=== PATIENT | female | born 1955 | race Caucasian/White ===

== ENCOUNTER 2022-02-16 08:39 | Day surgery (SDC) | payer OTHER, SELFPAY ==
[2022-02-16 09:28] VITALS: BP 129/60; PULSE 79; RESP 16; TEMP 36.5; O2SAT 97
[2022-02-16] MEDS: Tropicam./Phenyleph. (1/2.5%) 5 ML BTL OS ×3 (09:34→09:46)
--- NOTE | 2022-02-16 09:36 | ANES.PREOP_ITS ---
General Info Date of Service Date Performed: 02/16/22 Height: 5 ft Weight: 44.5 kg Body Mass Index (BMI): 19.1 Surgical Procedure: Operation Date: 02/16/22 11:40 Proposed Procedure Side Surgeon p Cataract Extraction with IOL Implant Left Jarek Mon MD Meds Allergies and Home Medications Allergies Allergy/AdvReac Type Severity Reaction Status Date / Time amoxicillin [From Augmentin] Allergy Intermediate Hives Unverified 02/15/22 14:52 aspirin Allergy Intermediate Hives Unverified 02/15/22 14:53 clavulanic acid Allergy Intermediate Hives Unverified 02/15/22 14:52 [From Augmentin] oxycodone Allergy Intermediate Hives Unverified 02/15/22 14:52 Home Medication Medication Instructions Recorded aspirin 81 mg capsule,delayed 81 mg PO DAILY 02/15/22 release cyanocobalamin (vitamin B-12) 500 500 mcg PO DAILY 02/15/22 mcg tablet (Vitamin B-12) ferrous sulfate 325 mg (65 mg 325 mg PO DAILY 02/15/22 iron) tablet ibuprofen 200 mg tablet 200 mg PO DIRECTED 02/15/22 infliximab 100 mg intravenous 100 mg IV DIRECTED 02/15/22 solution (Remicade) lisinopril 2.5 mg tablet 2.5 mg PO DAILY 02/15/22 magnesium oxide 500 mg tablet 500 mg PO DAILY 02/15/22 potassium 75 mg tablet 75 mg PO DAILY 02/15/22 sulfasalazine 500 mg 1,000 mg PO TID 02/15/22 tablet,delayed release Current Visit Medications: Current Medications Generic Name Dose Route Start Last Admin Trade Name Freq PRN Reason Stop Dose Admin Acetaminophen 1,000 mg 02/16/22 06:00 Acetaminophen 500 Mg Tab PO Q4H PRN PRN Miscellaneous Medication 0 ml 02/16/22 06:00 Prednisolone 1%, Moxifloxacin 0.5%, Nepafenac 0.1% 5ml Btl OS DIRECTED [facility] Miscellaneous Medication 0 ml 02/16/22 06:00 02/16/22 09:34 Tropicam./Phenyleph. 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 stated it was not blocked it was kinked. History of tonsillectomy and adenoidectomy Hx of arthroscopy of shoulder Hx of breast biopsy Hx of esophagogastroduodenoscopy Tobacco Smoking/Tobacco Use Status: Current every day Tobacco Type: cigarettes Alcohol Alcohol Intake: never Substance Use Substance use: Never Substance use type: does not use Vital Signs and Lab Results Vital Signs Most Recent Vital Signs in EMR: Most Recent Vital Signs Temp Pulse Resp BP Pulse Ox 36.5 C 79 16 129/60 97 02/16/22 09:28 02/16/22 09:28 02/16/22 09:28 02/16/22 09:28 02/16/22 09:28 Lab Results Blood Type / Crossmatch: No Data to Display Complete Blood Count: No Data to Display Complete Metabolic Panel: No Data to Display Liver Function Panel: No Data to Display Coagulation Panel: No Data to Display Cardiac Panel: No Data to Display Arterial Blood Gas: No Data to Display Venous Blood Gas: No Data to Display Pancreas Panel: No Data to Display Thyroid Panel: No Data to Display Infectious Disease: No Data to Display Blood Cultures: No Data to Display Toxicology Panel: No Data to Display Anesthesia Assessment and Plan Anesthesia History Personal History: No History of Anesthesia Complications Family History: No Family History of Anesthesia Complications Exercise Tolerance Exercise Tolerance: Metabolic Equivalents>4 Pertinent Negatives Pertinent Negatives: No Symptoms of GERD Cardiac & Pulmonary Exam Cardiac Exam: Normal S1/S2 Heart Sounds Pulmonary Exam: Clear Bilateral Breath Sounds Implantable Cardiac Device Does patient have a Pacemaker or an ICD?: No Airway Exam Known Difficult Airway: No Mallampati Class: 3 Mouth Opening: Normal (> 3cm) Thyromental Distance: Less than 3 cm Neck Range of Motion: Full ROM Neck Circumference: Normal Teeth Condition: Removable Dentures/Plates Upper and Removable Dentures/Plates Lower ASA Classification ASA Score: ASA 2 Emergency Case?: No NPO Status NPO Status: NPO Clears >2 hours, Solids >8 hours Anesthesia Plan Resuscitation Status: Full Code Anesthesia Technique: MAC Anesthesia Airway Planned: Natural Airway Monitors Used: Standard Monitors
[2022-02-16 09:37] VITALS: BMI 19.1
[2022-02-16] MEDS: Balanced Salt Soln.-PLUS 500 ML BAG (11:25)
[2022-02-16] MEDS: Duovisc Viscoelastic System EACH 1 EACH (11:26)
[2022-02-16] MEDS: Lidocaine 2% Jelly 6 ML SYR (11:27)
[2022-02-16] MEDS: Povidone-Iodine Ophth 30 ML BTL (11:31)
[2022-02-16] MEDS: Tetracaine 0.5% 4 ML BTL OS (11:32)
--- NOTE | 2022-02-16 11:47 | PDOC.DSDIS_ITS ---
Date of service: 02/16/22 Time of Service: 11:48 Discharge Plan Disposition Patient Disposition: HOME Condition: Good Discharge Details Attending Provider: Jarek Mon Primary Care Provider: Rosamaria Guardado [place] Meds and New Rx's Prescriptions: No Action sulfasalazine 500 mg Tablet,Delayed Release (Dr/Ec) 1,000 mg PO TID aspirin 81 mg Capsule,Delayed Release(Dr/Ec) 81 mg PO DAILY cyanocobalamin (vitamin B-12) [Vitamin B-12] 500 mcg Tablet 500 mcg PO DAILY potassium 75 mg Tablet 75 mg PO DAILY ferrous sulfate 325 mg (65 mg iron) Tablet 325 mg PO DAILY infliximab [Remicade] 100 mg Recon Soln 100 mg IV DIRECTED ibuprofen 200 mg Tablet 200 mg PO DIRECTED magnesium oxide 500 mg Tablet 500 mg PO DAILY lisinopril 2.5 mg Tablet 2.5 mg PO DAILY Discharge Instructions Stand Alone Forms: Post-op Topical Cataract, Henrry Smith (DSU) Discharge Orders Discharge Orders: Discharge Order (Routine); Ordered 02/16/22 Ordered By: Jraek Mon DS: Diagnosis Discharge Diagnosis (1) Cortical cataract of left eye: Status: Resolved (2) Nuclear sclerotic cataract of left eye: Status: Resolved
[2022-02-16 11:48] VITALS: BP 126/72; PULSE 81; RESP 16; TEMP 36.2; O2SAT 96
--- NOTE | 2022-02-16 11:48 | ROE_ITS ---
Date of service: 02/16/22 Time of Service: 11:48 Operative Note Operative Note DATE OF PROCEDURE: 02/16/22 PRE-OP DIAGNOSIS: Nuclear/cortical cataract, left eye POST-OP DIAGNOSIS: same PROCEDURE: Cataract extraction using phacoemulsification with intraocular lens implant, left eye SURGEON: Jarek Mon ANESTHESIA TYPE: Local By Surgeon and MAC Refer to Anesthesia Record PATHOLOGY: none sent COMPLICATIONS: None Patient was transported to: same day Patient's condition: stable Implants: Tray and Tray / [employer] Tecnis [id number] Indications: Progressive decreased vision due to cataract, left eye Procedure Description: CATARACT SURGERY OPERATIVE REPORT PREOPERATIVE DIAGNOSIS: 1. Nuclear/cortical cataract, left eye POSTOPERATIVE DIAGNOSIS: Same OPERATION: 1. Cataract extraction using phacoemulsification with posterior chamber intraocular lens implant, left eye. IOL: IOL Rail [employer] Supervisor/Model: Tray & Tray / KALLIE Tecnis [id number] IOL Power: + 25.0 diopters IOL Serial Number: [id number] Optic Diameter: 6.0 mm Haptic/Overall Diameter: 13.0 mm PHACO INFO: Mikey[employer]emon Vision System with OZil and Active Fluidics Cumulative Dispersed Energy (CDE): 6.86 seconds SURGEON: Jarek Mon MD, NORA ANESTHESIA: Monitored A [facility] (MAC), with local sub-tenon's anesthetic infiltration COMPLICATIONS: None SPECIMENS: None INDICATIONS FOR PROCEDURE: The patient is a 66-year-old lady with history of diminished visual acuity in her left eye secondary to the development of nuclear/cortical cataract in the left eye. The option of cataract surgery was offered to the patient and she wished to proceed. PROCEDURE: The correct surgical eye was identified and marked as the left eye and the pupil was dilated in the preoperative area using mydriatics and cycloplegics. The dilated pupil size was 7.0 mm.. The patient elected to proceed without oral sedation. The patient was brought to the operating room where cardiopulmonary monitoring was instituted and surgical time-out was performed, confirming the correct operative eye and IOL power. Topical anesthesia was administered and ophthalmic povidone-iodine 5% was instilled into the conjunctival fornices. Lidocaine gel was applied to the cornea and the amy-ocular area was prepped with Betadine 10% solution and draped in the usual sterile fashion for intraocular surgery, including an aperture drape. A Tegaderm transparent film dressing was cut in half and used to cover the lashes and lid margins. Care was taken to sequester the lashes and lid margins under the Tegaderm dressing. A lid speculum was placed between the lids of the operative eye and the Mikey LuxOR Revalia operating microscope was maneuvered into position. Bella scissors were then used to make a conjunctival buttonhole approximately 6mm posterior to the limbus in the inferonasal quadrant. Blunt dissection was carried out to expose bare sclera, and a blunt-tipped sub-tenon?s anesthesia cannula was introduced and passed posteriorly along the globe where non- preserved plain lidocaine was injected into posterior sub-Tenon?s space. A sideport knife was used to make a paracentesis port superiorly/superiortemporally. Intraocular phenylephrine/lidocaine was injected int the anterior chamber.. The anterior chamber was filled with viscoelastic. A keratome knife was used to construct a 2-plane near-clear corneal tunnel extending 2.0mm into clear cornea temporally. A flap was raised on the anterior capsule and capsulorhexis forceps were used to complete a continuous curvilinear capsulorhexis of 5.0 mm. Balanced salt solution was then used to perform cortical cleaving hydrodissection and nuclear hydrodelineation until the lens could be freely rotated within the capsular bag. The lens nucleus was then disassembled and removed within the capsular bag and iris plane using phacoemulsification. Residual cortical material was removed using the 45-degree angled silicone I/A tip with 0.3mm port. The posterior capsule was carefully polished to remove as much residual lens epithelial cells as safely possible. The capsular bag was then inflated and the anterior chamber deepened with viscoelastic. The lens implant described above was inserted into the capsular bag using the KALLIE [place] Injector. A Kuglen hook was used to dial the IOL into position. Residual viscoelastic was then removed first from posterior to the IOL, then from the anterior chamber using the I/A handpiece. The lens implant was noted to center nicely within the capsular bag. The incisions were stromally hydrated, and the anterior chamber was reformed using BSS. Then 0.5cc of moxifloxacin 1.0mg/ml were injected into the capsular bag and anterior chamber. The incisions were checked with a Weck spear and found to be secure. Several drops of ophthalmic povidone-iodine 5% were then applied to the eye followed by two drops of Imprimis combination prednisolone/moxifloxacin/nepafenac solution. The drapes were removed and a clear plastic protective eye shield was placed over the eye. The patient was then returned to Same Day Surgery in stable condition.
--- NOTE | 2022-02-16 12:28 | W.ANESPOSTOP ---
Postoperative Evaluation Date, Time and Location Date Performed: 02/16/22 Time Performed: 11:55 Patient Location: Day Surgery Unit Vital Signs Most Recent Imported Vital Signs: Most Recent Vital Signs Temp Pulse Resp BP Pulse Ox 36.2 C L 81 16 126/72 96 02/16/22 11:48 02/16/22 11:48 02/16/22 11:48 02/16/22 11:48 02/16/22 11:48 Pain Score Most Recent Pain Score: Most Recent Pain Score Pain Level 0 02/16/22 11:48 Assessment Mental Status: Awake (Alert & Oriented to Patient Baseline) Airway and Respiratory Function: Patent airway with normal (patient baseline) respiratory exam Cardiovascular Function: Hemodynamically Stable Hydration Status: Adequately Hydrated Nausea & Vomiting: No Nausea or Vomiting Pain: Pt. Denies Any Pain Peripheral Nerve Block: Patient did not receive a nerve block
== END 2022-02-16 12:16 | disposition home or self-care (01) ==
LOC: SUR 08:41
PROVIDERS: PCP Family Medicine; Visit Provider Ophthalmology
PROC: (CPT 66984; principal; 2022-02-16 11:30)
DX: H25.12 Age-related nuclear cataract, left eye (principal); I10 Essential (primary) hypertension; E78.2 Mixed hyperlipidemia
CPT/HCPCS: 66984; V2632

== ENCOUNTER 2022-03-02 06:32 | Day surgery (SDC) | payer OTHER, SELFPAY ==
[2022-03-02 06:30] VITALS: BP 152/66; PULSE 84; RESP 18; TEMP 36.6; O2SAT 99
[2022-03-02] MEDS: Tropicam./Phenyleph. (1/2.5%) 5 ML BTL OD ×3 (06:45→06:52)
--- NOTE | 2022-03-02 07:16 | ANES.PREOP_ITS ---
General Info Date of Service Date Performed: 03/02/22 Height: 5 ft 1 in Weight: 46 kg Body Mass Index (BMI): 19.1 Surgical Procedure: Operation Date: 03/02/22 07:40 Proposed Procedure Side Surgeon p Cataract Extraction with IOL Implant Right Jarek Mon MD Actual Procedure Side Surgeon p Cataract Extraction with IOL Implant Right Jarek Mon MD Meds Allergies and Home Medications Allergies Allergy/AdvReac Type Severity Reaction Status Date / Time amoxicillin [From Augmentin] Allergy Intermediate Hives Unverified 03/02/22 06:40 aspirin Allergy Intermediate Hives Unverified 03/02/22 06:40 clavulanic acid Allergy Intermediate Hives Unverified 03/02/22 06:40 [From Augmentin] oxycodone Allergy Intermediate Hives Unverified 03/02/22 06:40 Home Medication Medication Instructions Recorded aspirin 81 mg capsule,delayed 81 mg PO DAILY 02/15/22 release cyanocobalamin (vitamin B-12) 500 500 mcg PO DAILY 02/15/22 mcg tablet (Vitamin B-12) ferrous sulfate 325 mg (65 mg 325 mg PO DAILY 02/15/22 iron) tablet ibuprofen 200 mg tablet 200 mg PO DIRECTED 02/15/22 infliximab 100 mg intravenous 100 mg IV DIRECTED 02/15/22 solution (Remicade) lisinopril 2.5 mg tablet 2.5 mg PO DAILY 02/15/22 magnesium oxide 500 mg tablet 500 mg PO DAILY 02/15/22 potassium 75 mg tablet 75 mg PO DAILY 02/15/22 sulfasalazine 500 mg 1,000 mg PO TID 02/15/22 tablet,delayed release Current Visit Medications: Current Medications Generic Name Dose Route Start Last Admin Trade Name Freq PRN Reason Stop Dose Admin Acetaminophen 1,000 mg 03/02/22 06:00 Acetaminophen 500 Mg Tab PO Q4H PRN PRN Miscellaneous Medication 0 ml 03/02/22 06:00 Prednisolone 1%, Moxifloxacin 0.5%, Nepafenac 0.1% 5ml Btl OD DIRECTED [facility] Miscellaneous Medication 0 ml 03/02/22 06:00 03/02/22 06:52 Tropicam./Phenyleph. 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 stated it was not blocked it was kinked. History of cataract surgery History of tonsillectomy and adenoidectomy Hx of arthroscopy of shoulder Hx of breast biopsy Hx of esophagogastroduodenoscopy Tobacco Smoking/Tobacco Use Status: Current every day Tobacco Type: cigarettes Alcohol Alcohol Intake: never Substance Use Substance use: Never Substance use type: does not use Vital Signs and Lab Results Vital Signs Most Recent Vital Signs in EMR: Most Recent Vital Signs Temp Pulse Resp BP Pulse Ox 36.6 C 84 18 152/66 H 99 03/02/22 06:30 03/02/22 06:30 03/02/22 06:30 03/02/22 06:30 03/02/22 06:30 Lab Results Blood Type / Crossmatch: No Data to Display Complete Blood Count: No Data to Display Complete Metabolic Panel: No Data to Display Liver Function Panel: No Data to Display Coagulation Panel: No Data to Display Cardiac Panel: No Data to Display Arterial Blood Gas: No Data to Display Venous Blood Gas: No Data to Display Pancreas Panel: No Data to Display Thyroid Panel: No Data to Display Infectious Disease: No Data to Display Blood Cultures: No Data to Display Toxicology Panel: No Data to Display Anesthesia Assessment and Plan Anesthesia History Personal History: No History of Anesthesia Complications Family History: No Family History of Anesthesia Complications Exercise Tolerance Exercise Tolerance: Metabolic Equivalents>4 Cardiac & Pulmonary Exam Cardiac Exam: Normal S1/S2 Heart Sounds Pulmonary Exam: Clear Bilateral Breath Sounds Implantable Cardiac Device Does patient have a Pacemaker or an ICD?: No Airway Exam Known Difficult Airway: No Mallampati Class: 3 Mouth Opening: Normal (> 3cm) Thyromental Distance: Less than 3 cm Neck Range of Motion: Full ROM Neck Circumference: Normal Teeth Condition: Removable Dentures/Plates Upper and Removable Dentures/Plates Lower ASA Classification ASA Score: ASA 2 Emergency Case?: No NPO Status NPO Status: NPO Clears >2 hours, Solids >8 hours Anesthesia Plan Resuscitation Status: Full Code Anesthesia Technique: MAC Anesthesia Airway Planned: Natural Airway Monitors Used: Standard Monitors
[2022-03-02 07:17] VITALS: BMI 19.1
[2022-03-02] MEDS: Povidone-Iodine Ophth 30 ML BTL (07:29)
[2022-03-02] MEDS: Lidocaine 2% Jelly 6 ML SYR (07:30)
[2022-03-02] MEDS: Tetracaine 0.5% 4 ML BTL OD (07:30)
[2022-03-02] MEDS: Balanced Salt Soln.-PLUS 500 ML BAG (07:40)
[2022-03-02] MEDS: Duovisc Viscoelastic System EACH 1 EACH (07:41)
[2022-03-02 07:54] VITALS: BP 102/85; PULSE 69; RESP 16; TEMP 36.3; O2SAT 97
--- NOTE | 2022-03-02 07:54 | PDOC.DSDIS_ITS ---
Date of service: 03/02/22 Time of Service: 07:54 Discharge Plan Disposition Patient Disposition: HOME Condition: Good Discharge Details Attending Provider: Jarek Mon Primary Care Provider: Rosamaria Guardado [place] Meds and New Rx's Prescriptions: No Action sulfasalazine 500 mg Tablet,Delayed Release (Dr/Ec) 1,000 mg PO TID aspirin 81 mg Capsule,Delayed Release(Dr/Ec) 81 mg PO DAILY cyanocobalamin (vitamin B-12) [Vitamin B-12] 500 mcg Tablet 500 mcg PO DAILY potassium 75 mg Tablet 75 mg PO DAILY ferrous sulfate 325 mg (65 mg iron) Tablet 325 mg PO DAILY infliximab [Remicade] 100 mg Recon Soln 100 mg IV DIRECTED ibuprofen 200 mg Tablet 200 mg PO DIRECTED magnesium oxide 500 mg Tablet 500 mg PO DAILY lisinopril 2.5 mg Tablet 2.5 mg PO DAILY Discharge Instructions Stand Alone Forms: Post-op Topical Cataract, Henrry Smith (DSU) Discharge Orders Discharge Orders: Discharge Order (Routine); Ordered 03/02/22 Ordered By: Jarek Mon DS: Diagnosis Discharge Diagnosis (1) Cortical cataract of right eye: Status: Resolved (2) Nuclear sclerotic cataract of right eye: Status: Resolved
--- NOTE | 2022-03-02 07:55 | W.PM.OP ---
Date of service: 03/02/22 Time of Service: 07:55 Operative Note Operative Note DATE OF PROCEDURE: 03/02/22 PRE-OP DIAGNOSIS: Nuclear/cortical cataract, right eye POST-OP DIAGNOSIS: same PROCEDURE: Cataract extraction using phacoemulsification with intraocular lens implant, right eye SURGEON: Jarek Mon ANESTHESIA TYPE: Local By Surgeon and MAC Refer to Anesthesia Record ESTIMATED BLOOD LOSS: 0 PATHOLOGY: none sent COMPLICATIONS: None Patient was transported to: same day Patient's condition: stable Implants: Tray & Tray/KALLIE Tecnis [id number] Indications: Progressive visual loss due to cataract, right eye Procedure Description: CATARACT SURGERY OPERATIVE REPORT PREOPERATIVE DIAGNOSIS: 1. Nuclear/cortical cataract, right eye POSTOPERATIVE DIAGNOSIS: Same OPERATION: 1. Cataract extraction using phacoemulsification with posterior chamber intraocular lens implant, right eye. IOL: IOL Paint Stockman/Model: Tray & Tray / KALLIE Tecnis [id number] IOL Power: + 24.0 diopters IOL Serial Number: [id number] Optic Diameter: 6.0mm Haptic/Overall Diameter: 13.0mm PHACO INFO: Mikey [employer] Vision System with OZil and Active Fluidics Cumulative Dispersed Energy (CDE): 10.60 seconds SURGEON: Jarek Mon MD, NORA ANESTHESIA: Monitored Anesthesia Care (MAC), with local sub-tenon's anesthetic infiltration COMPLICATIONS: None SPECIMENS: None INDICATIONS FOR PROCEDURE: The patient is a 66-year-old lady with history of diminished visual acuity in both eyes secondary to development of bilateral nuclear/cortical cataract. She has already undergone cataract surgery in the left eye and is doing well postoperatively. She now presents for cataract surgery in the right eye. PROCEDURE: The correct surgical eye was identified and marked as the right eye and the pupil was dilated in the preoperative area using mydriatics and cycloplegics. The dilated pupil size was 6.5 mm. Oral sedation was administered in the form of an Imprimis MKO Melt (midazolam 3mg/ketamine 25mg/ondansetron 2mg). The patient elected to proceed without oral sedation. The patient was brought to the operating room where cardiopulmonary monitoring was instituted and surgical time-out was performed, confirming the correct operative eye and IOL power. Topical anesthesia was administered and ophthalmic povidone-iodine 5% was instilled into the conjunctival fornices. Lidocaine gel was applied to the cornea and the amy-ocular area was prepped with Betadine 10% solution and draped in the usual sterile fashion for intraocular surgery, including an aperture drape. A Tegaderm transparent film dressing was cut in half and used to cover the lashes and lid margins. Care was taken to sequester the lashes and lid margins under the Tegaderm dressing. A lid speculum was placed between the lids of the operative eye and the Mikey LuxOR Revalia operating microscope was maneuvered into position. Bella scissors were then used to make a conjunctival buttonhole approximately 6mm posterior to the limbus in the inferonasal quadrant. Blunt dissection was carried out to expose bare sclera, and a blunt-tipped sub-tenon?s anesthesia cannula was introduced and passed posteriorly along the globe where non-preserved plain lidocaine was injected into posterior sub-Tenon?s space. A sideport knife was used to make a paracentesis port inferotemporally. Intraocular phenylephrine/lidocaine was injected into the anterior chamber. The anterior chamber was filled with viscoelastic. A keratome knife was used to construct a 2-plane near-clear corneal tunnel extending 2.0mm into clear cornea superiortemporally. A flap was raised on the anterior capsule and capsulorhexis forceps were used to complete a continuous curvilinear capsulorhexis of 5.5 mm. Balanced salt solution was then used to perform cortical cleaving hydrodissection and nuclear hydrodelineation until the lens could be freely rotated within the capsular bag. The lens nucleus was then disassembled and removed within the capsular bag and iris plane using phacoemulsification. Residual cortical material was removed using the I/A handpiece. The posterior capsule was carefully polished to remove as much residual lens epithelial cells as safely possible. The capsular bag was then inflated and the anterior chamber deepened with viscoelastic. The lens implant described above was inserted into the capsular bag using the KALLIE [place] Injector. A Kuglen hook was used to dial the IOL into position. Residual viscoelastic was then removed first from posterior to the IOL, then from the anterior chamber using the I/A handpiece. The lens implant was noted to center nicely within the capsular bag. The incisions were stromally hydrated, and the anterior chamber was reformed using BSS. Then 0.5cc of moxifloxacin 1.0mg/ml were injected into the capsular bag and anterior chamber. The incisions were checked with a Weck spear and found to be secure. Several drops of ophthalmic povidone-iodine 5% were then applied to the eye followed by two drops of Imprimis combination prednisolone/moxifloxacin/nepafenac solution. The drapes were removed and a clear plastic protective eye shield was placed over the eye. The patient was then returned to Same Day Surgery in stable condition.
--- NOTE | 2022-03-02 08:21 | W.ANESPOSTOP ---
Postoperative Evaluation Date, Time and Location Date Performed: 03/02/22 Time Performed: 08:20 Patient Location: Day Surgery Unit Vital Signs Most Recent Imported Vital Signs: Most Recent Vital Signs Temp Pulse Resp BP Pulse Ox 36.3 C L 69 16 102/85 97 03/02/22 07:54 03/02/22 07:54 03/02/22 07:54 03/02/22 07:54 03/02/22 07:54 Pain Score Most Recent Pain Score: Most Recent Pain Score Pain Level 0 03/02/22 07:54 Assessment Mental Status: Awake (Alert & Oriented to Patient Baseline) Airway and Respiratory Function: Patent airway with normal (patient baseline) respiratory exam Cardiovascular Function: Hemodynamically Stable Hydration Status: Adequately Hydrated Nausea & Vomiting: No Nausea or Vomiting Pain: Pt. Denies Any Pain Peripheral Nerve Block: Patient did not receive a nerve block
== END 2022-03-02 08:07 | disposition home or self-care (01) ==
LOC: SUR 06:32
PROVIDERS: PCP Family Medicine; Visit Provider Ophthalmology
PROC: (CPT 66984; principal; 2022-03-02 07:30)
DX: H25.11 Age-related nuclear cataract, right eye (principal)
CPT/HCPCS: 66984; V2632